=== PATIENT | female | born 1960 | race Caucasian/White ===

== ENCOUNTER 2017-06-24 15:18 | Emergency (ER) | payer OTHER ==
[~2017-06-24 15:18] MED LIST: ALBUTEROL MININEB NEB; ALBUTEROL17 G1 IH; ALBUTEROL17 GM INH; ALBUTEROL20 ml INH; AMOXICILLIN PO; AZITHROMYCIN250 MG PO; BENZONATATE PO; CIPRO PO; FLEXERIL PO; FLEXERIL10 M1 PO; IBUPROFEN600 MG; LEVAQUIN750 MG PO; LORCET PLUS TAB1 TA1 PO; LORTAB 5/500 TA1 TA1 PO; NO MEDICATIONS; PERCOCET 7.5-31 EACH PO; PREDNISONE PO; PREDNISONE50 MG PO; PROMETHAZINE D118 ML PO; ROBAXIN500 MG PO; SYMBICORT80 INH; VIBRAMYCIN100 M1 PO; ZITHROMAX PO
[2017-06-24] MEDS ORDERED: NO MEDICATIONS (15:21)
== END 2017-06-24 16:52 | disposition home or self-care (01) ==
LOC: SED 15:18
DX: M54.41 Lumbago with sciatica, right side (principal); J44.9 Chronic obstructive pulmonary disease, unspecified; F17.200 Nicotine dependence, unspecified, uncomplicated; Z88.8 Allergy status to other drugs, medicaments and biological substances
CPT/HCPCS: 96372; 99283; J1040